=== PATIENT | female | born 1955 | race Caucasian/White ===

== ENCOUNTER 2021-02-26 07:47 | Emergency (ER) | payer BC, SELFPAY ==
--- NOTE | ~2021-02-26 | CT_ITS ---
EXAMINATION: CT HEAD WITHOUT CONTRAST CLINICAL INFORMATION: Fall, trauma. On Coumadin. COMPARISON: CT had noncontrast 01/06/2014 TECHNIQUE: Contiguous axial imaging was performed from the skull base to vertex without intravenous administration of contrast. Additional 2-D coronal and sagittal reformatted images are generated on the CT workstation and uploaded to PACS. This CT examination was performed using dose optimization techniques as appropriate, variously including the following: *Automated exposure control *Adjustment of mA and/or kV according to patient size (this includes techniques or standardized protocols for targeted exams where dose is matched to indication/reason for exam; i.e. extremities or head) *Use of iterative reconstruction technique DLP: 701 mGy-cm FINDINGS: There is no intracranial hemorrhage, hematoma, or extra-axial fluid collection. The ventricles are normal in size. There is no hydrocephalus. There is old appearing infarct right frontal region with gliosis right frontal white matter. No associated mass effect or edema. Finding is new from remote CT 2013. There is no visible acute territorial infarct or mass lesion. The calvarium appears intact. There is no pneumocephalus or orbital emphysema. There is some scattered mild mucosal thickening ethmoid air cells. No air-fluid levels sinuses, middle ears, mastoids. CT/CT head/brain wo con IMPRESSION: 1. No intracranial hemorrhage or hematoma. 2. Old appearing infarct right frontal lobe with gliosis right frontal white matter. No mass effect or edema. Finding new from remote prior CT 2013.
--- NOTE | ~2021-02-26 | CT_ITS ---
EXAMINATION: CT CERVICAL SPINE WITHOUT CONTRAST CLINICAL INFORMATION: Fall and neck pain COMPARISON: None TECHNIQUE: 3 mm thin axial and reformatted 2 mm thin sagittal coronal images of cervical spine were obtained without contrast. This CT examination was performed using dose optimization techniques as appropriate, variously including the following: *Automated exposure control *Adjustment of mA and/or kV according to patient size (this includes techniques or standardized protocols for targeted exams where dose is matched to indication/reason for exam; i.e. extremities or head) *Use of iterative reconstruction technique DLP: 1134 mGy-cm FINDINGS: There is mild straightening of cervical lordosis. The vertebral heights and alignment is normal. There is mild loss of C4-C5, C5-C6, C6-C7 disc heights with mild ventral and posterior spondylosis. The craniovertebral junction and the C1-C2 alignment is normal. There is moderate right C2-C3, C3-C4 facet joint hypertrophy and arthropathy. There is mild right C3-C4, bilateral C4-C5, moderate C5-C6 uncovertebral hypertrophic changes with neural foraminal narrowing. The prevertebral and paravertebral soft tissues are normal. Visualized bilateral submandibular and parotid glands are symmetrical and normal. The airway is widely patent. Incidental finding of a right carotid stent with mild narrowing in the distal segment with absent or sclerotic calcified plaque is noted. The lung apices are clear. CT/CT cervical spine wo con IMPRESSION: No visible acute fracture, dislocation subluxation. Mild straightening of cervical lordosis likely spasm. Spondylosis and right facet joint arthropathy as described above. There is distal right carotid artery stent narrowing noted. Recommend vascular consultation.
[2021-02-26 07:55] VITALS: BP 130/61; PULSE 83; RESP 18; TEMP 36.8; O2SAT 92; BMI 29.7
--- NOTE | 2021-02-26 08:33 | ED.GENADULT ---
HPI - General Adult General Chief complaint: General Medical Stated complaint: FALL,COVID+,FOUND UNRESPONSIVE Time Seen by Provider: 02/26/21 08:33 Source: patient Mode of arrival: EMS Limitations: no limitations History of Present Illness HPI narrative: patient has a history of CVAs with left sided weakness, had a right carotid stent placed. Patient diagnosed with COVID and started not feeling well on Thanksgiving. Today had syncope times 2. This included fecal and urinary incontinence. She also felt like her weak arm was twitching prior to the event. Onset (ago): minute(s) Severity: severe Exacerbating factors: none Associated symptoms: confusion, syncope and weakness Related Data Home Medications Medication Instructions Recorded Confirmed albuterol sulfate 90 mcg/actuation 1 puff INHALATION Q4H PRN 02/26/21 aerosol inhaler alprazolam 0.25 mg tablet 0.25 mg PO BID PRN 02/26/21 amitriptyline 50 mg tablet 50 mg PO BEDTIME 02/26/21 amlodipine 5 mg tablet 5 mg PO DAILY 02/26/21 atorvastatin 40 mg tablet 40 PO DAILY 02/26/21 atorvastatin 80 mg tablet 80 mg PO DAILY 02/26/21 beclomethasone dipropionate 80 INHALATION 02/26/21 mcg/actuation HFA breath activated aerosol (Qvar RediHaler) ciprofloxacin HCl 500 mg tablet 500 mg PO BID 02/26/21 clopidogrel 75 mg tablet 75 mg PO DAILY 02/26/21 hydrochlorothiazide 25 mg tablet 25 mg PO DAILY 02/26/21 lamotrigine 25 mg tablet mg PO 02/26/21 levetiracetam 1,000 mg tablet mg PO 02/26/21 levothyroxine 25 mcg tablet 25 mcg PO DAILY 02/26/21 methylphenidate HCl 5 mg tablet 5 mg PO BID 02/26/21 metoprolol succinate 50 mg 50 mg PO DAILY 02/26/21 tablet,extended release 24 hr nitrofurantoin 100 mg PO BID 02/26/21 monohydrate/macrocrystals 100 mg capsule omeprazole 40 mg capsule,delayed 40 mg PO BID 02/26/21 release Allergies Allergy/AdvReac Type Severity Reaction Status Date / Time Penicillins [PENICILLINS] Allergy Unknown RASH Unverified 12/14/19 17:52 Sulfa (Sulfonamide Allergy Unknown ANAPHYLAXIS Unverified 12/14/19 17:52 Antibiotics) [SULFA (SULFONAMIDE ANTIBIOTICS)] sumatriptan [From IMITREX] Allergy Unknown WEAKNESS Unverified 12/14/19 17:52 Review of Systems Constitutional: Constitutional: Reports no additional constitutional complaints Eyes: Eyes: Reports no additional eye complaints ENT: Denies dizziness Cardiovascular: Cardiovascular: Reports no additional cardiovascular complaints Respiratory: Respiratory: Reports as per HPI Gastrointestinal: Gastrointestinal: Reports no additional gastrointestinal complaints Genitourinary: Genitourinary: Reports no additional female genitourinary complaints Musculoskeletal: Musculoskeletal: Reports no additional musculoskeletal complaints Integumentary/Breasts: Skin/Breast: Denies rash Neurologic: Reports system reviewed and no additional complaints, except as documented, Denies dizziness and Denies Sensory deficit (Neuro) Psychiatric: Psychiatric: Denies anxiety [facility] Past Medical History Medical History (Updated 02/26/21 @ 11:32 by Jadiel Parker MD) A-fib COPD (chronic obstructive pulmonary disease) Social History Social History Alcohol intake: never Smoked in Last 30 Days: No Use of substances other than those prescribed or required for medical reasons: No Advance Directives: Yes Advance Directives Information Provided: No Advance Directives on File: No Physical Exam Vital Signs: Vital Signs: Last Vital Signs Temp 98.3 F 02/26/21 07:55 Pulse 80 02/26/21 09:57 Resp 16 02/26/21 09:57 BP 124/69 02/26/21 09:57 Pulse Ox 99 02/26/21 09:57 BMI result Body Mass Index 29.7 Neuro: Sensory Exam: No Sensory deficit (Neuro) Course Reevaluation(s) Reevaluation #1: patient now telling me she has a known history of seizures on keppra. Todays event sounds like seizure Time: 09:39 Reevaluation #2: patient with an episode that sounds mostly like seizure. no new stroke, She has narrowing of carotid stent and this needs to be followed as well. Will dc home Time: 11:30 Medical Decision Making Lab Data Result diagrams: 02/26/21 09:14 02/26/21 09:14 Labs: Lab Results 02/26/21 02/26/21 02/26/21 Range/Units 09:14 09:14 09:14 WBC 6.7 (4.8-10.8) X10*3/uL RBC 4.50 (4.20-5.50) X10*6/uL Hgb 12.5 (12.0-16.0) g/dl Hct 39.4 (37.0-47.0) % MCV 87.6 (80.0-98.0) fL MCH 27.8 (27.0-33.0) pg MCHC 31.7 (31.0-35.0) g/dl RDW 14.2 (11.0-16.0) % Plt Count 208 (160-400) X10*3/uL MPV 8.3 L (9.4-12.3) fL Immature Gran % (Auto) 0.6 H (0.0-0.4) % Neut % (Auto) 72.5 (45-73) % Lymph % (Auto) 15.5 L (20-40) % [place] % (Auto) 10.7 (2-11) % Eos % (Auto) 0.4 (0-4) % Baso % (Auto) 0.3 (0-2) % Lymph # (Auto) 1.0 L (1.2-4.9) X10*3/uL [place] # (Auto) 0.7 (0.1-1.2) X10*3/uL Eos # (Auto) 0.0 (0.0-0.4) X10*3/uL Baso # (Auto) 0.0 (0.0-0.2) X10*3/uL Abs Immat Gran (auto) 0.04 H (0.00-0.03) X10*3/uL Absolute Neuts (auto) 4.9 (2.0-8.3) x10*3/uL Absolute Nucleated RBC 0.000 (0.0-0.012) X10*3/uL Nucleated RBC % (auto) 0.0 (0.0-0.2) /100WBC Sodium 142 (135-145) mmol/L Potassium 4.2 (3.3-5.1) mmol/L Chloride 103 (96-108) mmol/L Carbon Dioxide 27 (22-29) mmol/L Anion Gap 16 (12-20) BUN 13 (9-16) mg/dL Creatinine 1.03 (0.5-1.4) mg/dL Estim Creat Clear Calc 53.2 Estimated GFR 54 Random Glucose 108 (60-115) mg/dL Calcium 9.4 (8.4-10.2) mg/dL Troponin I High Sens < 3.5 (<3.5-17.0) ng/L Imaging Data cervical spine CT: Radiologist's impression: IMPRESSION: No visible acute fracture, dislocation subluxation. Mild straightening of cervical lordosis likely spasm. ? Spondylosis and right facet joint arthropathy as described above. There is distal right carotid artery stent narrowing noted. Recommend vascular consultation. CT scan - head: Radiologist's impression: IMPRESSION: ? 1. No intracranial hemorrhage or hematoma. ? 2. Old appearing infarct right frontal lobe with gliosis right frontal white matter. No mass effect or edema. Finding new from remote prior CT 2013. ECG Data Attestation: I personally reviewed and interpreted this ECG as follows: Interpretation: sinus rate of [address] anterior and lateral st twave changes Discharge Plan Discharge Clinical Impression: Seizure, COVID-19 Carotid artery disease Qualifiers: Carotid artery disease type: occlusion Laterality: right Qualified Code(s): I65.21 - Occlusion and stenosis of right carotid artery Patient Disposition: Home, Self-Care Instructions: Epilepsy in Older Adults (ED), COVID-19 (Coronavirus Disease 2019) (ED) Prescriptions: No Action atorvastatin 40 mg tablet 40 PO DAILY RF: 0 atorvastatin 80 mg tablet 80 mg PO DAILY RF: 0 metoprolol succinate 50 mg tablet extended release 24 hr 50 mg PO DAILY RF: 0 methylphenidate HCl 5 mg tablet 5 mg PO BID RF: 0 clopidogrel 75 mg tablet 75 mg PO DAILY RF: 0 amlodipine 5 mg tablet 5 mg PO DAILY RF: 0 ciprofloxacin HCl 500 mg tablet 500 mg PO BID RF: 0 omeprazole 40 mg capsule,delayed release(DR/EC) 40 mg PO BID RF: 0 amitriptyline 50 mg tablet 50 mg PO BEDTIME RF: 0 levothyroxine 25 mcg tablet 25 mcg PO DAILY RF: 0 lamotrigine 25 mg tablet PO RF: 0 alprazolam 0.25 mg tablet 0.25 mg PO BID PRN (Reason: Anxiety) RF: 0 hydrochlorothiazide 25 mg tablet 25 mg PO DAILY RF: 0 albuterol sulfate 90 mcg/actuation HFA aerosol inhaler 1 puff inhalation Q4H PRN (Reason: Shortness Of Breath) RF: 0 nitrofurantoin monohyd/m-cryst 100 mg capsule 100 mg PO BID RF: 0 levetiracetam 1,000 mg tablet PO RF: 0 Qvar RediHaler 80 mcg/actuation HFA aerosol breath activated inhalation RF: 0 Referrals: Rg Kilgore MD [Primary Care Provider] - 5 days
--- NOTE | 2021-02-26 08:47 | ECG_ITS ---
Test Reason : fall/afib Blood Pressure : / mmHG Vent. Rate : 079 BPM Atrial Rate : 079 BPM P-R Int : 132 ms QRS Dur : 082 ms QT Int : 374 ms P-R-T Axes : 063 018 -43 degrees QTc Int : 428 ms Normal sinus rhythm ST & T wave abnormality, consider anterolateral ischemia Abnormal ECG No previous ECGs available Referred By: Jadiel Parker Electronically Signed By:ALTAF MCKINLEY
[2021-02-26 09:17] LABS: MANUAL DIFF FLAG NO
[2021-02-26 09:20] LABS: Basophils Percent Auto 0.3 % (0-2); Eosinophils Percent Auto 0.4 % (0-4); Hematocrit 39.4 % (37.0-47.0); Hemoglobin 12.5 g/dl (12.0-16.0); Imm Gran Abs Auto 0.04 X10*3/uL (0.00-0.03); Imm Gran Pct Auto 0.6 % (0.0-0.4); Lymphocytes Percent Auto 15.5 % (20-40); Mean Corpuscular HGB Conc 31.7 g/dl (31.0-35.0); Mean Corpuscular Hemoglobin 27.8 pg (27.0-33.0); Mean Corpuscular Volume 87.6 fL (80.0-98.0); Mean Platelet Volume 8.3 fL (9.4-12.3); Monocytes Absolute Auto 0.7 X10*3/uL (0.1-1.2); Monocytes Percent Auto 10.7 % (2-11); Neutrophils Absolute Auto 4.9 x10*3/uL (2.0-8.3); Neutrophils Percent Auto 72.5 % (45-73); Platelet Count 208 X10*3/uL (160-400); Red Cell Distribution Width 14.2 % (11.0-16.0); White Blood Count 6.7 X10*3/uL (4.8-10.8)
[2021-02-26 09:35] LABS: Anion Gap 16 (12-20); Blood Urea Nitrogen 13 mg/dL (9-16); Calcium 9.4 mg/dL (8.4-10.2); Carbon Dioxide 27 mmol/L (22-29); Chloride 103 mmol/L (96-108); Creatinine Clr Calc Pharmacy 53.2; Estimated Glomerular Filt Rate 54; Glucose Random 108 mg/dL (60-115); Potassium 4.2 mmol/L (3.3-5.1); Sodium 142 mmol/L (135-145)
[2021-02-26 09:40] LABS: Troponin-I High Sensitivity < 3.5 ng/L (<3.5-17.0)
[2021-02-26 09:57] VITALS: BP 124/69; PULSE 80; RESP 16; O2SAT 99
--- NOTE | 2021-02-26 10:24 | PC.NURSE ---
spoke with family- pt lost control of bowels and bladder- hx of seziures and stroke.
== END 2021-02-26 11:58 | disposition home or self-care (01) ==
PROVIDERS: Emergency Provider Emergency Medicine; PCP Family Medicine
DX: I65.21 Occlusion and stenosis of right carotid artery (principal); U07.1 COVID-19; M54.2 Cervicalgia; R32 Unspecified urinary incontinence; R56.9 Unspecified convulsions; Z79.899 Other long term (current) drug therapy; Z86.73 Personal history of transient ischemic attack (TIA), and cerebral infarction without residual deficits
CPT/HCPCS: 36415; 70450; 72125; 80048; 84484; 85025; 93005; 99284

== ENCOUNTER 2023-04-28 06:20 | Day surgery (SDC) | payer BC, SELFPAY ==
[2023-04-26 11:48] VITALS: BMI 25.0
--- NOTE | 2023-04-27 11:48 | HO.ANESPROP2 ---
Documented by User: Shelbi Kwok NP 04/27/23 11:55 HPI - Anesthesia Eval Consult details Narrative: 67yo F for Upper Endoscopy and Colonoscopy Afib - plavix and aspirin Seizure hx. Follows [facility]. Last office visit 02/2023 CVA 2020 with carotid stent placed - partial occlusion. Follows [facility], last office visit 06/2022. Plan for one more duplex, but forego any further if results unchanged. Recanalization of vessel could be somewhat dangerous. Plavix and aspirin PMFSH Active Problems Active Problems: All Active Problems (Updated 04/26/23 @ 11:46 by Bibi Gupta, RN) COVID-19 (Acute) Past Medical History Medical History Loud snoring Wears dentures Arthritis Low back pain Kidney cysts Neck pain Abdominal pain GERD (gastroesophageal reflux disease) IBS (irritable bowel syndrome) HLD (hyperlipidemia) HTN (hypertension) COPD (chronic obstructive pulmonary disease) Hx of seizure disorder Ambulates with cane Personal history of stroke with current residual effects Hx of carotid artery stenosis COPD (chronic obstructive pulmonary disease) A-fib Surgical History Surgical History History of esophagogastroduodenoscopy Hx of colonoscopy Hx of cholecystectomy Hx of spinal surgery Hx of arthroscopy of left knee Social History Social History (Updated 04/26/23 @ 11:50 by Bibi Gupta, JANICE) Are you a primary post acute care nurse to a significant other at home: No Do you presently have visiting nurse or other home services: No Alcohol intake: never Patient Tobacco Use Status: Former Tobacco user Quit Date: 2008 Tobacco use type: Cigarette Use of substances other than those prescribed or required for medical reasons: No Have you been hit, kicked, punched, or otherwise hurt by someone within the past year? If so, by whom?: No Are you DNR?: No Advance Directives: No Advance Directives Information Provided: Yes Advance Directives on File: No Recently lost weight without trying: No Nutrition Risks: No Nutritional Risk Meds Allergies Allergy/AdvReac Type Severity Reaction Status Date / Time Sulfa (Sulfonamide Allergy Severe ANAPHYLAXIS Verified 04/28/23 06:41 Antibiotics) [SULFA (SULFONAMIDE ANTIBIOTICS)] Penicillins [PENICILLINS] Allergy Intermediate RASH Verified 04/28/23 06:41 sumatriptan [From IMITREX] Allergy Intermediate WEAKNESS Verified 04/28/23 06:41 Home Medications Medication Instructions Recorded Confirmed Last Taken Type albuterol sulfate 90 mcg/actuation 1 puff inhalation Q4H PRN 02/26/21 04/26/23 Unknown History aerosol inhaler Shortness Of Breath amlodipine 5 mg tablet 10 mg PO DAILY 02/26/21 04/26/23 Unknown History atorvastatin 80 mg tablet 80 mg PO BEDTIME 02/26/21 04/26/23 Unknown History beclomethasone dipropionate 80 1 inh inhalation DAILY 02/26/21 04/26/23 Unknown History mcg/actuation HFA breath activated aerosol (Qvar RediHaler) clopidogrel 75 mg tablet 75 mg PO DAILY 02/26/21 04/26/23 Unknown History levetiracetam 1,000 mg tablet 1,500 mg PO BID 02/26/21 04/26/23 Unknown History metoprolol succinate 50 mg 50 mg PO DAILY 02/26/21 04/26/23 Unknown History tablet,extended release 24 hr omeprazole 40 mg capsule,delayed 40 mg PO BID 02/26/21 04/26/23 Unknown History release aspirin 81 mg chewable tablet 81 mg PO DAILY 04/26/23 04/26/23 Unknown History hyoscyamine sulfate 0.375 mg 0.375 mg PO Q12H 04/26/23 04/26/23 Unknown History tablet,extended release,12 hr lamotrigine 200 mg tablet 200 mg PO BID 04/26/23 04/26/23 Unknown History sertraline 100 mg tablet 100 - 200 mg PO DAILY 04/26/23 04/26/23 Unknown History Exam Height,Weight and Vital Signs: Height 5 ft 3 in Weight 63.957 kg Documented by User: Richard Flores MD 04/28/23 07:26 [facility] Past Medical History Medical History Loud snoring Wears dentures Arthritis Low back pain Kidney cysts Neck pain Abdominal pain GERD (gastroesophageal reflux disease) IBS (irritable bowel syndrome) HLD (hyperlipidemia) HTN (hypertension) COPD (chronic obstructive pulmonary disease) Hx of seizure disorder Ambulates with cane Personal history of stroke with current residual effects Hx of carotid artery stenosis COPD (chronic obstructive pulmonary disease) A-fib Family History Family history of problems with anesthesia: No Surgical History Surgical History History of esophagogastroduodenoscopy Hx of colonoscopy Hx of cholecystectomy Hx of spinal surgery Hx of arthroscopy of left knee History of Problems with Anesthesia: No Social History Social History (Updated 04/26/23 @ 11:50 by Bibi Gupta RN) Are you a primary post acute care nurse to a significant other at home: No Do you presently have visiting nurse or other home services: No Alcohol intake: never Patient Tobacco Use Status: Former Tobacco user Quit Date: 2008 Tobacco use type: Cigarette Use of substances other than those prescribed or required for medical reasons: No Have you been hit, kicked, punched, or otherwise hurt by someone within the past year? If so, by whom?: No Are you DNR?: No Advance Directives: No Advance Directives Information Provided: Yes Advance Directives on File: No Recently lost weight without trying: No Nutrition Risks: No Nutritional Risk Meds Allergies Allergy/AdvReac Type Severity Reaction Status Date / Time Sulfa (Sulfonamide Allergy Severe ANAPHYLAXIS Verified 04/28/23 06:41 Antibiotics) [SULFA (SULFONAMIDE ANTIBIOTICS)] Penicillins [PENICILLINS] Allergy Intermediate RASH Verified 04/28/23 06:41 sumatriptan [From IMITREX] Allergy Intermediate WEAKNESS Verified 04/28/23 06:41 Home Medications Medication Instructions Recorded Confirmed Last Taken Type albuterol sulfate 90 mcg/actuation 1 puff inhalation Q4H PRN 02/26/21 04/26/23 Unknown History aerosol inhaler Shortness Of Breath amlodipine 5 mg tablet 10 mg PO DAILY 02/26/21 04/26/23 Unknown History atorvastatin 80 mg tablet 80 mg PO BEDTIME 02/26/21 04/26/23 Unknown History beclomethasone dipropionate 80 1 inh inhalation DAILY 02/26/21 04/26/23 Unknown History mcg/actuation HFA breath activated aerosol (Qvar RediHaler) clopidogrel 75 mg tablet 75 mg PO DAILY 02/26/21 04/26/23 Unknown History levetiracetam 1,000 mg tablet 1,500 mg PO BID 02/26/21 04/26/23 Unknown History metoprolol succinate 50 mg 50 mg PO DAILY 02/26/21 04/26/23 Unknown History tablet,extended release 24 hr omeprazole 40 mg capsule,delayed 40 mg PO BID 02/26/21 04/26/23 Unknown History release aspirin 81 mg chewable tablet 81 mg PO DAILY 04/26/23 04/26/23 Unknown History hyoscyamine sulfate 0.375 mg 0.375 mg PO Q12H 04/26/23 04/26/23 Unknown History tablet,extended release,12 hr lamotrigine 200 mg tablet 200 mg PO BID 04/26/23 04/26/23 Unknown History sertraline 100 mg tablet 100 - 200 mg PO DAILY 04/26/23 04/26/23 Unknown History Exam Airway Mallampati Class: II TM Dist: >3cm Neck ROM: Full Denture: Upper Heart: ok. PAfib. Now in SR. Lungs: ok. Assessment and Plan Assessment Anesthesia Assessment: Anesthesia Plan Discussed and Chart Reviewed Final Anesthetic Review Family History of Problems with Anesthesia: No History of Problems with Anesthesia: No NPO: Yes ASA Class: III and IV Final Preanesthetic Review: No Changes in Pt Med Stat, Meds/Allgs Chart Reviewed, Consent Obtained/Reviewed and Anes Risks/Benef Reviewed Patient Risk: High Procedure Risk: Low Anesthetic Plan Anesthetic Plan: MAC: and Agree w/ Assess. and Plan Disposition: Standard PACU
[2023-04-28 06:54] VITALS: BP 145/64; PULSE 64; RESP 16; TEMP 36; O2SAT 96
[2023-04-28] MEDS: Lactated Ringers 1,000 ML 100 ML IVCONT (06:55)
[2023-04-28 08:55] VITALS: BP 93/51; PULSE 54; RESP 16; TEMP 36.2; O2SAT 97
--- NOTE | 2023-04-28 09:01 | PM.OP ---
Brief Operative Note Date of Service: 04/28/23 Pre-op diagnosis: GERD, Screening Post-op diagnosis: other (GERD, Polyps) Procedure: EGD, Colonoscopy to the cecum with bx/removal of polyps, hot snare polypectomy of AC and TC polyps with placement of clips Surgeon: Juliocesar Del Angel MD Anesthesia: MAC Was an Junior Systems Analyst used for this Procedure?: No Estimated blood loss (mL): 2.0 Pathology: other (A. Cecal polyp B. Ascending colon polyps C. Transverse colon polyps) Condition: stable Disposition: PACU
[2023-04-28 09:10] VITALS: BP 132/63; PULSE 52; RESP 16; O2SAT 97
[2023-04-28 09:31] VITALS: TEMP 36.4
--- NOTE | 2023-04-28 09:46 | OP_ITS ---
DATE OF SERVICE: 04/28/2023 SURGEON: Juliocesar Del Angel MD INDICATIONS: The patient presents for evaluation of gastroesophageal reflux, reported history of Hyatt's esophagus, history of colon polyps, and colorectal cancer screening. Full consent was obtained from her for this, including risks of bleeding and perforation. PREOPERATIVE DIAGNOSIS: POSTOPERATIVE DIAGNOSIS: PROCEDURE PERFORMED: ESTIMATED BLOOD LOSS: COMPLICATIONS: ANESTHESIA: Monitored anesthesia care. ASSISTANTS: SPECIMENS: PREOPERATIVE DIAGNOSES: Gastroesophageal reflux, reported history of Hyatt's esophagus, personal history of colon polyps, colorectal cancer screening. POSTOPERATIVE DIAGNOSES: Gastroesophageal reflux, reported history of Hyatt's esophagus, personal history of colon polyps, colorectal cancer screening, minimal gastroesophageal reflux, colon polyps, diverticulosis, and internal hemorrhoids. PROCEDURES PERFORMED: Esophagogastroduodenoscopy, and colonoscopy to the cecum with biopsy and removal of polyps, hot snare polypectomy x 2, and placement of Resolution clips. DESCRIPTION OF PROCEDURE: The patient was placed in the left lateral decubitus position. The Olympus video gastroscope was passed in the posterior oropharynx and upper esophagus under direct vision. The scope was passed slowly to the distal esophagus. The gastroesophageal junction appeared normal at 38 cm, other than some very minimal irregularity. There was no esophagitis nor any definitive evidence of Hyatt's esophagus. The scope entered the stomach. There was a minimal hiatal hernia. The scope was advanced to the pylorus and the duodenum was cannulated to the descending portion. The duodenum including the bulb appeared normal, without mass or ulceration. The scope was withdrawn back in the stomach. The gastric antrum and body appeared normal with good peristalsis. The scope was retroflexed visualizing the proximal stomach carefully, which appeared normal, without any sign of mass or ulceration. The scope was straightened and withdrawn back to the esophagus. The esophageal mucosa appeared normal. The scope was withdrawn the patient. She was turned around for colonoscopy. The digital rectal exam revealed some small external hemorrhoids. The Olympus video pediatric colonoscope was entered into the rectum and advanced easily to the cecum. Once in the cecum, I did identify cecal pouch with appendiceal orifice and a normal-appearing ileocecal valve. In the cecum were 2 approximately 3 mm nonbleeding angiodysplasias. There was also an approximately 4 mm adenomatous appearing polyp which was biopsied and completely removed with a cold biopsy forceps. The remainder of the cecum appeared normal. The scope was slowly withdrawn assessing all mucosal surfaces carefully. Preparation was excellent. In the proximal ascending colon was another approximately 4 mm grossly adenomatous polyp, which was biopsied and completely removed with a cold biopsy forceps. Just distal to this was an approximately 1.5 cm polyp on a short stalk, which was removed by hot snare polypectomy and then recovered with the retrieval net by withdrawing it out of the patient. The scope was then advanced back to the polypectomy site. The polypectomy site appeared clean, without any sign of residual polyp nor bleeding. A single Ultra Resolution clip was applied to the polypectomy site with good deployment and good hemostasis. Of note, 3 previous attempts with Resolution clips were unsuccessful in deploying on the polypectomy site. In the proximal transverse colon was an approximately 1.2 cm polyp, which was removed by hot snare polypectomy. The polypectomy site appeared clean, without any sign of residual polyp nor bleeding. Two Resolution clips were applied to the polypectomy site with good deployment and good hemostasis. The polyp was then withdrawn with the retrieval net and taken out of the patient. Of note, I was able to achieve good visualization of the colon as the scope was withdrawn. In the colon were several other approximately 5 to 8 mm small polyps, which were not removed at this time as at that point the procedure had been lengthy. There was a moderate amount of diverticulosis. There was no sign of any colitis nor any other angiodysplasia. In the rectum, scope was retroflexed visualizing internal hemorrhoids, but no other pathology. The rectal mucosa appeared normal. Scope was straightened and withdrawn from the patient. She tolerated the procedure well and was returned to recovery area in stable condition. IMPRESSION: 1. Colon polyps. 2. Diverticulosis. 3. Internal and external hemorrhoids. 4. Minimal hiatal hernia and reflux. PLAN: The results of the pathology will be checked. Given these findings and some residual polyps, I would recommend a repeat colonoscopy in the next year or so. She will be followed up in the office to review that and set that up at some point in the future. She was advised to resume her Plavix and aspirin in 72 hours. Her last dose of Plavix was only 48 hours ago. This has all been discussed with her . MD SARA Roper/SETH / [id number] CESAR
== END 2023-04-28 09:49 | disposition home or self-care (01) ==
PROVIDERS: PCP Family Medicine; Visit Provider Internal Medicine
PROC: (CPT 45385; principal; 2023-04-28 07:30)
DX: Z12.11 Encounter for screening for malignant neoplasm of colon (principal); Z86.010 Personal history of colon polyps; D12.0 Benign neoplasm of cecum; D12.2 Benign neoplasm of ascending colon; D12.3 Benign neoplasm of transverse colon; K55.20 Angiodysplasia of colon without hemorrhage; K57.30 Diverticulosis of large intestine without perforation or abscess without bleeding; K64.8 Other hemorrhoids; K64.4 Residual hemorrhoidal skin tags; K58.9 Irritable bowel syndrome, unspecified; R10.31 Right lower quadrant pain; K21.9 Gastro-esophageal reflux disease without esophagitis; K44.9 Diaphragmatic hernia without obstruction or gangrene; I10 Essential (primary) hypertension; J44.9 Chronic obstructive pulmonary disease, unspecified; I48.91 Unspecified atrial fibrillation; I69.354 Hemiplegia and hemiparesis following cerebral infarction affecting left non-dominant side; I69.311 Memory deficit following cerebral infarction; Z87.891 Personal history of nicotine dependence; Z79.01 Long term (current) use of anticoagulants; Z79.82 Long term (current) use of aspirin; Z79.899 Other long term (current) drug therapy; Z79.51 Long term (current) use of inhaled steroids
CPT/HCPCS: 45385; 45380; 43235; 88305; J1596; J2704

== ENCOUNTER 2024-12-25 07:11 | Day surgery (SDC) | payer BC, SELFPAY ==
--- OUTSIDE RECORDS SUMMARY | 2024-09-06 09:18 | XMS_ITS | Clinical Summary ---
Author Organization [facility] Facility Address [address] [address] Care Team Providers Care Burlap Worker Name Role Phone Unavailable Primary Care Provider Unavailabl e Social History Tobacco Use Types Packs/Day Years Used Date Smoking Tobacco: Never Assessed Comments Unknown Sex and Gender Information Value Date Recorded Sex Assigned at Not on file Legal Sex Female 11:18 AM EST Gender Identity Not on file Sexual Orientation Not on file Plan of Treatment Health Maintenance Due Date Last Done Comments Breast Cancer Screening 1955 Colorectal Cancer Screening: Annual FOBT 12/03/2004 Colorectal Cancer Screening: Colonoscopy 12/03/2004 Colorectal Cancer Screening: Sigmoidoscopy 12/03/2004 Pneumococcal Vaccine: 50+ Ye ars (1 of - PCV) 12/03/2005 Influenza Vaccine (Season Ended) 2024 Hepatitis B Vaccine Aged Out No longe r eligible based on patient's age to complete this topic Insurance [facility] Plan [facility]
[2024-09-25 14:17] VITALS: BMI 25.5
--- NOTE | 2024-09-26 08:33 | HO.ANESPROP2 ---
HPI - Anesthesia Eval Consult details Narrative: Rescheduled to 11/2024 68yo F for Colonoscopy Aspirin and plavix: 2020: acute right frontal and parietal nonhemorrhagic infarctions with subsequent right internal carotid stenting with subsequent repeat angiogram demonstrating the carotid stent to be occluded (~3 months later) complicated by post stroke seizures Follows [facility] vascular annually. Last office visit 06/2024 - stable - Head/Neck CT: The right carotid stent is?occluded, she may have some?recanalization of the?artery but nothing substantial.? The left carotid artery is widely patent. ?She has a fair amount of tortuosity associated with the vessel.? This potentially?could result in higher velocities seen in the left internal carotid artery, but there is no significant stenosis in the cervical portion.? She does have some?atherosclerosis in the intracranial portion?but this would be treated medically. PMFSH Active Problems Active Problems: All Active Problems COVID-19 (Acute) Past Medical History Medical History (Updated 09/25/24 @ 14:17 by Isela Goetz RN) Wears dentures Arthritis Low back pain Kidney cysts Neck pain Abdominal pain GERD (gastroesophageal reflux disease) IBS (irritable bowel syndrome) HLD (hyperlipidemia) HTN (hypertension) COPD (chronic obstructive pulmonary disease) Hx of seizure disorder Ambulates with cane Personal history of stroke with current residual effects Hx of carotid artery stenosis A-fib Family History Family history of problems with anesthesia: No Surgical History Surgical History History of esophagogastroduodenoscopy Hx of colonoscopy Hx of cholecystectomy Hx of spinal surgery Hx of arthroscopy of left knee History of Problems with Anesthesia: No Social History Social History (Updated 04/26/23 @ 11:50 by Bibi Gupta RN) Are you a primary career services assistant to a significant other at home: No Do you presently have visiting nurse or other home services: No Alcohol intake: never Patient Tobacco Use Status: Former Tobacco user Tobacco use type: Cigarette Meds Allergies Allergy/AdvReac Type Severity Reaction Status Date / Time Sulfa (Sulfonamide Allergy Severe ANAPHYLAXIS Verified 04/28/23 06:41 Antibiotics) (SULFA (SULFONAMIDE ANTIBIOTICS)) Penicillins (PENICILLINS) Allergy Intermediate RASH Verified 04/28/23 06:41 sumatriptan (From IMITREX) Allergy Intermediate WEAKNESS Verified 04/28/23 06:41 Home Medications ?Medication ?Instructions ?Recorded ?Confirmed ?Last Taken ?Type albuterol sulfate 90 mcg/actuation 1 puff inhalation Q4H PRN 02/26/21 04/26/23 Unknown History aerosol inhaler Shortness Of Breath amlodipine 5 mg tablet 10 mg PO DAILY 02/26/21 09/25/24 Unknown History atorvastatin 80 mg tablet 80 mg PO BEDTIME 02/26/21 09/25/24 Unknown History beclomethasone dipropionate 80 1 inh inhalation DAILY 02/26/21 04/26/23 Unknown History mcg/actuation HFA breath activated aerosol (Qvar RediHaler) clopidogrel 75 mg tablet 75 mg PO DAILY 02/26/21 09/25/24 Unknown History levetiracetam 1,000 mg tablet 1,500 mg PO BID 02/26/21 09/25/24 Unknown History metoprolol succinate 50 mg 50 mg PO DAILY 02/26/21 09/25/24 04/28/23 History tablet,extended release 24 hr omeprazole 40 mg capsule,delayed 40 mg PO BID 02/26/21 09/25/24 Unknown History release aspirin 81 mg chewable tablet 81 mg PO DAILY 04/26/23 09/25/24 Unknown History hyoscyamine sulfate 0.375 mg 0.375 mg PO Q12H 04/26/23 04/26/23 Unknown History tablet,extended release,12 hr lamotrigine 200 mg tablet 200 mg PO BID 04/26/23 09/25/24 Unknown History sertraline 100 mg tablet 100 - 200 mg PO DAILY 04/26/23 04/26/23 Unknown History Exam Height,Weight and Vital Signs: Height 5 ft 3 in Weight 65.317 kg Pertinent Lab Results Pertinent Lab Results: CBC and BMP 07/2024 from [facility] Narrative Narrative: EKG 07/2024 Ventricular Rate: 52 BPM Atrial Rate: 52 BPM P-R Interval: 144 ms QRS Duration: 82 ms Q-T Interval: 464 ms QTC Calculation(Bazett): 431 ms P Eldridge: 61 degrees R Eldridge: 34 degrees T Eldridge: 36 degrees Sinus bradycardia Septal infarct , age undetermined Abnormal ECG When compared with ECG of 06-Apr-2024 12:31, Septal infarct is now Present Nonspecific T wave abnormality has replaced inverted T waves in Inferior leads Nonspecific T wave abnormality, improved in Anterior leads Confirmed by ONEL STEEL MD ([id number]) on 08/16/2024 7:46:05 PM Assessment and Plan Assessment Anesthesia Assessment: Chart Reviewed Final Anesthetic Review Family History of Problems with Anesthesia: No History of Problems with Anesthesia: No
--- NOTE | 2024-12-22 08:27 | HO.ANESPROP2 ---
Documented by User: Shelbi Kwok NP 12/22/24 08:31 HPI - Anesthesia Eval Consult details Narrative: 68yo F for Colonoscopy Aspirin and plavix: 2020: acute right frontal and parietal nonhemorrhagic infarctions with subsequent right internal carotid stenting with subsequent repeat angiogram demonstrating the carotid stent to be occluded (~3 months later) complicated by post stroke seizures. Follows [facility] vascular annually. Last office visit 06/2024 - stable - Head/Neck CT: The right carotid stent is?occluded, she may have some?recanalization of the?artery but nothing substantial.? The left carotid artery is widely patent. ?She has a fair amount of tortuosity associated with the vessel.? This potentially?could result in higher velocities seen in the left internal carotid artery, but there is no significant stenosis in the cervical portion.? She does have some?atherosclerosis in the intracranial portion?but this would be treated medically. PMF Active Problems Active Problems: All Active Problems COVID-19 (Acute) Past Medical History Medical History History of tachycardia Wears dentures Arthritis Low back pain Kidney cysts Neck pain Abdominal pain GERD (gastroesophageal reflux disease) IBS (irritable bowel syndrome) HLD (hyperlipidemia) HTN (hypertension) COPD (chronic obstructive pulmonary disease) Hx of seizure disorder Ambulates with cane Personal history of stroke with current residual effects Hx of carotid artery stenosis Family History Family history of problems with anesthesia: No Surgical History Surgical History History of esophagogastroduodenoscopy Hx of colonoscopy Hx of cholecystectomy Hx of spinal surgery Hx of arthroscopy of left knee History of Problems with Anesthesia: No Social History Social History Are you a primary healthcare applications analyst to a significant other at home: No Do you presently have visiting nurse or other home services: No Alcohol intake: never Patient Tobacco Use Status: Former Tobacco user Tobacco use type: Cigarette Use of substances other than those prescribed or required for medical reasons: No Are you DNR?: No Advance Directives: No Advance Directives Information Provided: Yes Meds Allergies Allergy/AdvReac Type Severity Reaction Status Date / Time Sulfa (Sulfonamide Allergy Severe ANAPHYLAXIS Verified 12/25/24 07:26 Antibiotics) (SULFA (SULFONAMIDE ANTIBIOTICS)) Penicillins (PENICILLINS) Allergy Intermediate RASH Verified 12/25/24 07:26 sumatriptan (From IMITREX) Allergy Intermediate WEAKNESS Verified 12/25/24 07:26 Home Medications ?Medication ?Instructions ?Recorded ?Confirmed ?Last Taken ?Type albuterol sulfate 90 mcg/actuation 1 puff inhalation Q4H PRN 02/26/21 12/25/24 Unknown History aerosol inhaler Shortness Of Breath amlodipine 5 mg tablet 10 mg PO DAILY 02/26/21 12/25/24 Unknown History atorvastatin 80 mg tablet 80 mg PO BEDTIME 02/26/21 12/25/24 Unknown History clopidogrel 75 mg tablet 75 mg PO DAILY 02/26/21 12/25/24 12/21/24 History levetiracetam 1,000 mg tablet 1,500 mg PO BID 02/26/21 12/25/24 Unknown History metoprolol succinate 50 mg 50 mg PO DAILY 02/26/21 12/25/24 04/28/23 History tablet,extended release 24 hr omeprazole 40 mg capsule,delayed 40 mg PO BID 02/26/21 12/25/24 Unknown History release aspirin 81 mg chewable tablet 81 mg PO DAILY 04/26/23 12/25/24 12/21/24 History lamotrigine 200 mg tablet 200 mg PO BID 04/26/23 12/25/24 Unknown History sertraline 100 mg tablet 100 - 200 mg PO DAILY 04/26/23 12/25/24 Unknown History dicyclomine 10 mg capsule 10 mg PO BID PRN Abdominal 12/25/24 12/25/24 Unknown History Discomfort gabapentin 300 mg capsule 300 mg PO TID 12/25/24 12/25/24 Unknown History Exam Height,Weight and Vital Signs: Height 5 ft 3 in Weight 65.317 kg Pertinent Lab Results Pertinent Lab Results: CBC and BMP 07/2024 from [facility] Narrative Narrative: EKG 07/2024 Ventricular Rate: 52 BPM Atrial Rate: 52 BPM P-R Interval: 144 ms QRS Duration: 82 ms Q-T Interval: 464 ms QTC Calculation(Bazett): 431 ms P Morrow: 61 degrees R Morrow: 34 degrees T Morrow: 36 degrees Sinus bradycardia Septal infarct , age undetermined Abnormal ECG When compared with ECG of 06-Apr-2024 12:31, Septal infarct is now Present Nonspecific T wave abnormality has replaced inverted T waves in Inferior leads Nonspecific T wave abnormality, improved in Anterior leads Confirmed by ONEL STEEL MD ([id number]) on 08/16/2024 7:46:05 PM Assessment and Plan Assessment Anesthesia Assessment: Chart Reviewed Final Anesthetic Review Family History of Problems with Anesthesia: No History of Problems with Anesthesia: No Documented by User: Merna Flores MD 12/25/24 08:54 PMFSH Past Medical History Medical History History of tachycardia Wears dentures Arthritis Low back pain Kidney cysts Neck pain Abdominal pain GERD (gastroesophageal reflux disease) IBS (irritable bowel syndrome) HLD (hyperlipidemia) HTN (hypertension) COPD (chronic obstructive pulmonary disease) Hx of seizure disorder Ambulates with cane Personal history of stroke with current residual effects Hx of carotid artery stenosis Surgical History Surgical History History of esophagogastroduodenoscopy Hx of colonoscopy Hx of cholecystectomy Hx of spinal surgery Hx of arthroscopy of left knee Social History Social History Are you a primary healthcare applications analyst to a significant other at home: No Do you presently have visiting nurse or other home services: No Alcohol intake: never Patient Tobacco Use Status: Former Tobacco user Tobacco use type: Cigarette Use of substances other than those prescribed or required for medical reasons: No Are you DNR?: No Advance Directives: No Advance Directives Information Provided: Yes Meds Allergies Allergy/AdvReac Type Severity Reaction Status Date / Time Sulfa (Sulfonamide Allergy Severe ANAPHYLAXIS Verified 12/25/24 07:26 Antibiotics) (SULFA (SULFONAMIDE ANTIBIOTICS)) Penicillins (PENICILLINS) Allergy Intermediate RASH Verified 12/25/24 07:26 sumatriptan (From IMITREX) Allergy Intermediate WEAKNESS Verified 12/25/24 07:26 Home Medications ?Medication ?Instructions ?Recorded ?Confirmed ?Last Taken ?Type albuterol sulfate 90 mcg/actuation 1 puff inhalation Q4H PRN 02/26/21 12/25/24 Unknown History aerosol inhaler Shortness Of Breath amlodipine 5 mg tablet 10 mg PO DAILY 02/26/21 12/25/24 Unknown History atorvastatin 80 mg tablet 80 mg PO BEDTIME 02/26/21 12/25/24 Unknown History clopidogrel 75 mg tablet 75 mg PO DAILY 02/26/21 12/25/24 12/21/24 History levetiracetam 1,000 mg tablet 1,500 mg PO BID 02/26/21 12/25/24 Unknown History metoprolol succinate 50 mg 50 mg PO DAILY 02/26/21 12/25/24 04/28/23 History tablet,extended release 24 hr omeprazole 40 mg capsule,delayed 40 mg PO BID 02/26/21 12/25/24 Unknown History release aspirin 81 mg chewable tablet 81 mg PO DAILY 04/26/23 12/25/24 12/21/24 History lamotrigine 200 mg tablet 200 mg PO BID 04/26/23 12/25/24 Unknown History sertraline 100 mg tablet 100 - 200 mg PO DAILY 04/26/23 12/25/24 Unknown History dicyclomine 10 mg capsule 10 mg PO BID PRN Abdominal 12/25/24 12/25/24 Unknown History Discomfort gabapentin 300 mg capsule 300 mg PO TID 12/25/24 12/25/24 Unknown History Exam Airway Mallampati Class: II TM Dist: >3cm Neck ROM: Full Loose/Missing/Broken Teeth: Yes, Upper and Lower Heart: RRR Lungs: CTA Assessment and Plan Assessment Anesthesia Assessment: Anesthesia Plan Discussed Final Anesthetic Review NPO: Yes ASA Class: III Final Preanesthetic Review: Meds/Allgs Chart Reviewed, Consent Obtained/Reviewed and Anes Risks/Benef Reviewed Patient Risk: Intermediate Procedure Risk: Low Anesthetic Plan Anesthetic Plan: MAC: Disposition: Standard PACU
[2024-12-25 07:26] VITALS: BMI 24.1
[2024-12-25 07:32] VITALS: BP 118/85; PULSE 83; RESP 15; TEMP 36.2; O2SAT 96
[2024-12-25] MEDS: Lactated Ringers 1,000 ML 100 ML IVCONT (07:51)
[2024-12-25 09:40] VITALS: BP 135/73; PULSE 75; RESP 18; TEMP 36.3; O2SAT 99
--- NOTE | 2024-12-25 09:45 | PM.OP ---
Brief Operative Note Date of Service: 12/25/24 Pre-op diagnosis: Screening Post-op diagnosis: other (Polyps) Procedure: Colonoscopy to the cecum with hot snare polypectomy x 4 and placement of 1 Resolution clip on each polypectomy site Surgeon: Juliocesar Del Angel MD Anesthesia: MAC Was an Offset Assistant Press Operator used for this Procedure?: No Estimated blood loss (mL): 0 Pathology: other (A. Transverse colon polyps B. Ascending colon polyp) Condition: stable Disposition: PACU
[2024-12-25 09:55] VITALS: BP 124/55; PULSE 61; RESP 16; TEMP 36.6; O2SAT 98
--- NOTE | 2024-12-25 12:43 | OP_ITS ---
DATE OF SERVICE: 12/25/2024 SURGEON: Juliocesar Del Angel MD INDICATIONS: The patient presents for evaluation of personal history of colon polyps and colorectal cancer screening. Full consent has been obtained from her for this, including risks of bleeding and perforation. PREOPERATIVE DIAGNOSIS: POSTOPERATIVE DIAGNOSIS: PROCEDURE PERFORMED: Colonoscopy to the cecum with hot snare polypectomy x 4 with placement of a single resolution clip on each polypectomy site. ESTIMATED BLOOD LOSS: COMPLICATIONS: ANESTHESIA: Medication used, monitored anesthesia care. ASSISTANTS: SPECIMENS: PREOPERATIVE DIAGNOSES: Colorectal cancer screening and personal history of tubular adenoma of the colon. POSTOPERATIVE DIAGNOSES: Colorectal cancer screening and personal history of tubular adenoma of the colon, colon polyps, cecal angiodysplasias, diverticulosis, and internal hemorrhoids. DESCRIPTION OF PROCEDURE: The patient was placed in the left lateral decubitus position. The digital rectal exam revealed no abnormalities. The Olympus video pediatric colonoscope was entered into the rectum and advanced easily to the cecum. Once in the cecum, I did identify normal-appearing cecal pouch other than 2 nonbleeding less than 1 cm angiodysplasias. The remainder of the cecum appeared normal. The appendiceal orifice appeared normal. The ileocecal valve appeared normal. The scope was slowly withdrawn assessing all mucosal surfaces carefully. Preparation was excellent. In the ascending colon was an approximately 8 to 10 mm polyp, which was removed by hot snare polypectomy and recovered by suction. The polypectomy site appeared clean, without any sign of residual polyp nor bleeding. A single resolution clip was placed on the polypectomy site with good deployment and good hemostasis. In the transverse colon were 3 approximately 8 to 10 mm polyps, which were all removed by hot snare polypectomy and all recovered by suction. All 3 of the polypectomy sites were treated with a single resolution clip with good deployment and good hemostasis. All the polypectomy sites appeared clean, without any sign of residual polyp nor bleeding. I did not visualize any other polyps, aside from several 3 or 4 mm polyps, which were not removed or biopsied. There were no other angiodysplasias or colitis. There was a mild amount of sigmoid diverticulosis. In the rectum, scope was retroflexed visualizing internal hemorrhoids, but no other pathology. The rectal mucosa appeared normal. The scope was straightened and withdrawn from the patient. She tolerated the procedure well and was returned to the recovery area in stable condition. IMPRESSION: 1. Colon polyps. 2. Diverticulosis. 3. Nonbleeding cecal angiodysplasias. 4. Internal hemorrhoids. PLAN: The results of the pathology will be checked. Given today's findings and her previous history, I would recommend a repeat colonoscopy within 3 years for further screening and surveillance. She was advised to resume her aspirin and clopidogrel in 48 hours. She will continue her dicyclomine and omeprazole for symptomatic relief of her irritable bowel syndrome and reflux, respectively. She will otherwise see me on a p.r.n. basis. MD SARA Roper/SETH / [id number] MTDD
== END 2024-12-25 10:31 | disposition home or self-care (01) ==
PROVIDERS: PCP Family Medicine; Visit Provider Internal Medicine
PROC: 0DJD8ZZ Inspection of Lower Intestinal Tract, Via Natural or Artificial Opening Endoscopic (ICD-10-PCS; CPT 45378; principal; 2024-12-25 08:30)
DX: Z12.11 Encounter for screening for malignant neoplasm of colon (principal); Z86.0101 Personal history of adenomatous and serrated colon polyps; D12.2 Benign neoplasm of ascending colon; D12.3 Benign neoplasm of transverse colon; K55.20 Angiodysplasia of colon without hemorrhage; K57.30 Diverticulosis of large intestine without perforation or abscess without bleeding; K64.8 Other hemorrhoids; K58.9 Irritable bowel syndrome, unspecified; K21.9 Gastro-esophageal reflux disease without esophagitis; I69.311 Memory deficit following cerebral infarction; I69.354 Hemiplegia and hemiparesis following cerebral infarction affecting left non-dominant side; I10 Essential (primary) hypertension; E78.5 Hyperlipidemia, unspecified; J44.9 Chronic obstructive pulmonary disease, unspecified; Z79.82 Long term (current) use of aspirin; Z79.899 Other long term (current) drug therapy; Z99.89 Dependence on other enabling machines and devices; Z88.0 Allergy status to penicillin; Z88.2 Allergy status to sulfonamides; Z88.8 Allergy status to other drugs, medicaments and biological substances; Z90.49 Acquired absence of other specified parts of digestive tract; Z98.890 Other specified postprocedural states; Z87.891 Personal history of nicotine dependence
CPT/HCPCS: 45385; 88305; J2003; J2704